=== PATIENT | female | born 1975 | race African-American/Black ===

== ENCOUNTER 2020-01-08 16:50 | Emergency (ER) | payer BC, OTHER ==
[~2020-01-08] VITALS: Ht 162.6 cm; Wt 65.8 kg
[~2020-01-08 16:50] MED LIST: MULTIVITAMINS1 EAC8 ORAL; SLOW PO
[2020-01-08 17:30] VITALS: BP 118/88
--- NOTE | 2020-01-08 17:30 | NUR ---
ED Nurse Note: Pt reports pain on R labia since Wednesday pain 07/08. Pt denies drainage or pus. She denies dysuria or burning while urinating. Pt is alert and orientedx4, ambulatory.
--- NOTE | 2020-01-08 19:01 | Emergency Room Report ---
History of Present Illness General Chief Complaint: Skin Rash/Abscess Source: Patient Present Illness HPI 44-year-old female presents to the emergency department complaining of 10 out of 10 severity pain and tenderness to the right labia since . Patient reports initially began as a small white pimple and she states that it progressed in size. Patient reports that the pimple popped and she did attempt to squeeze out some pus for which she did not get much of. Patient states that the surrounding skin is hard to the touch. Patient states she is up-to-date with tetanus vaccines. Patient denies suspicion of STI and states that she had hysterectomy in 2014 and has not had any sexual encounters since. She denies rashes or lesions elsewhere. Patient denies dysuria. Patient denies swollen tender lymph nodes. Patient denies joint pain. No other aggravating or relieving factors at this time. Patient does report history of staph infections in the past. Allergies: Coded Allergies: NO KNOWN ALLERGIES (Verified Allergy, 04/13/13) COVID-19 Screening Contact w/high risk pt: No Experienced COVID-19 symptoms?: No COVID-19 Testing performed ATTACHER: No Patient History Past Medical History: see triage record Past Surgical History: hysterectomy Pertinent Family History: none Last Menstrual Period: HYSTERECTOMY Now: No Immunizations: UTD Reviewed Nursing Documentation: PMH: Agreed; PSxH: Agreed Nursing Documentation-PMH Past Medical History: No Stated History Hx Cardiac Problems: No Hx Cancer: No Hx Gastrointestinal Problems: No Hx Neurological Problems: No Review of Systems All Other Systems: negative except mentioned in HPI Physical Exam Vital Signs Date Time Temp Pulse Resp B/P (MAP) Pulse Ox O2 Delivery O2 Flow Rate FiO2 01/08/20 17:00 96.4 97 16 120/87 (98) 100 Room Air Sp02 EP Interpretation: reviewed, normal General Appearance: no apparent distress, alert, GCS 15, non-toxic Head: normocephalic, atraumatic Eyes: bilateral eye normal inspection, bilateral eye PERRL ENT: hearing grossly normal, normal voice Neck: full range of motion Respiratory: chest non-tender, lungs clear, normal breath sounds, speaking full sentences Cardiovascular #1: regular rate, rhythm Gastrointestinal: non tender, soft Rectal: deferred Genitourinary: normal inspection, other - ST cellulitis of the right labia majora. No fluctuance. There is some induration approximately 1.5cm in diameter. There appears to be in opening where some purulent drainage came from. Location is slightly above where her Bartholin's gland Musculoskeletal: back normal, normal range of motion, gait/station normal, non-tender Neurologic: alert, motor strength/tone normal, oriented x3, sensory intact, responsive, speech normal Psychiatric: judgement/insight normal Skin: other - ST cellulitis of the right labia majora. No fluctuance. There is some induration approximately 1.5cm in diameter. There appears to be in opening where some purulent drainage came from. Location is slightly above where her Bartholin's gland Lymphatic: no adenopathy Medical Decision Making PA Attestation Dr. Kahn Is my supervising Physician whom patient management has been discussed with. Diagnostic Impression: Primary Impression: Cellulitis of labia majora ER Course 44-year-old female presents to the emergency department complaining of 10 out of 10 severity pain and tenderness to the right labia since . Patient reports initially began as a small white pimple and she states that it progressed in size. Patient reports that the pimple popped and she did attempt to squeeze out some pus for which she did not get much of. Patient states that the surrounding skin is hard to the touch. Patient states she is up-to-date with tetanus vaccines. Patient denies suspicion of STI and states that she had hysterectomy in 2014 and has not had any sexual encounters since. She denies rashes or lesions elsewhere. Patient denies dysuria. Patient denies swollen tender lymph nodes. Patient denies joint pain. No other aggravating or relieving factors at this time. Patient does report history of staph infections in the past. Ddx considered but are not limited to cellulitis, abscess, cystic acne, necrotizing fasciitis, insect bite. Vital signs: are WNL, pt. is afebrile H&PE are most consistent with ST cellulitis of the right labia majora. No fluct uance. There is some induration approximately 1.5cm in diameter. There appears to be in opening where some purulent drainage came from. Location is slightly above where her Bartholin's gland is so low suspicion of Bartholin cyst especially given initial onset of a pustule. ORDERS: none required at this time, the diagnosis is clinical ED INTERVENTIONS: - None at this time. D/w pt. oral and topical abx with warm compresses regularly at home. d/w pt. no more manipulating it on her own. IF symptoms are getting worse return to the ED. DISCHARGE: At this time pt. is stable for d/c to home. Will provide printed patient care instructions, and any necessary prescriptions. Care plan and follow up instructions have been discussed with the patient prior to discharge. Last Vital Signs Date Time Temp Pulse Resp B/P (MAP) Pulse Ox O2 Delivery O2 Flow Rate FiO2 01/08/20 17:00 96.4 97 16 120/87 (98) 100 Room Air Status: improved Disposition: HOME, SELF-CARE Condition: Stable Scripts Fluconazole (FLUCONAZOLE) 100 Mg Tablet 100 MG ORAL DAILY for 3 Days, #3 TAB 0 Refills Prov: July Catherine 01/08/20 Acetaminophen With Codeine (T#3) (TYLENOL #3 TAB*) Y Tab 1 TAB ORAL Q6H PRN for For Pain, #10 TAB Prov: July Catherine 01/08/20 Mupirocin* (MUPIROCIN*) 22 Gm Oint...g. 1 APPLIC TOPIC THREE TIMES A DAY, #22 GM Prov: July Catherine 01/08/20 Cephalexin* (KEFLEX*) 500 Mg Capsule 500 MG ORAL EVERY 12 HOURS for 7 Days, #14 CAP 0 Refills Prov: July Catherine 01/08/20 Trimethoprim/Sulfamethoxazole 160/800* (BACTRIM DS TABLET*) 1 Each Tablet 1 TAB ORAL TWICE A DAY for 7 Days, #14 TAB Prov: July Catherine 01/08/20 Patient Instructions: Cellulitis, [id number] Additional Instructions: Take medications as directed. Do not drink alcohol, drive, or operate heavy machinery while taking Tylenol # 3 as this may cause drowsiness. Follow up with a Primary Care Provider in 3-5 days, even if your symptoms have resolved. Return sooner to ED if new symptoms occur, or current symptoms become worse. - Please note that this Emergency Department Report was dictated using Romotivetranscription technology software, occasionally this can lead to erroneous entry secondary to interpretation by the dictation equipment. July Catherine Jan 08, 2020 19:01
[2020-01-08] MEDS ORDERED: FLUCONAZOLE100 MG ORAL (19:03)
[2020-01-08] MEDS ORDERED: MUPIROCIN22 GM TOPIC (19:03)
[2020-01-08] MEDS ORDERED: BACTRIM DS TAB1 EAC1 ORAL (19:03)
[2020-01-08] MEDS ORDERED: CEPHALEXIN500 MG ORAL (19:03)
[2020-01-08] MEDS ORDERED: ACETAMINOPHEN-1 EAC1 ORAL (19:03)
[2020-01-08 19:10] VITALS: BP 124/85
--- NOTE | 2020-01-08 19:10 | NUR ---
ER DISCHARGE NOTE: Patient is cleared to be discharged per ERMD, pt is aox4, on room air, with stable vital signs. pt was given dc and prescription instructions, pt was able to verbalize understanding, pt id band removed. pt is able to ambulate with steady gait. pt took all belongings.
== END 2020-01-08 19:10 | disposition home or self-care (01) ==
LOC: EMR 17:38
DX: N76.2 Acute vulvitis (principal)
CPT/HCPCS: 99282